=== PATIENT | female | born 1960 | race Caucasian/White ===

== ENCOUNTER 2021-03-20 07:27 | Outpatient (CLI) | payer OTHER ==
[~2021-03-20] VITALS: Ht 167.7 cm; Wt 113.6 kg
[~2021-03-20 07:27] MED LIST: AMLO-65 PO; ESTR0.62 PO; ESTR1TAB37 PO; MULT1CAP27 PO
[2021-03-20] MEDS ORDERED: ESTR1TAB24 PO (15:59)
[2021-03-20] MEDS ORDERED: SIMV40TA25 PO (15:59)
== END 2021-03-20 16:18 | disposition home or self-care (01) ==
LOC: PREOP 07:27
PROVIDERS: ATTEND Surgery
DX: Z01.818 Encounter for other preprocedural examination (principal)

== ENCOUNTER 2021-03-27 08:29 | Day surgery (SDC) | payer OTHER ==
[2021-03-27] VITALS (10 sets, daily range): BP systolic 105–127; BP diastolic 57–72
[~2021-03-27] VITALS: Ht 167.7 cm; Wt 113.6 kg
[~2021-03-27 08:29] MED LIST changes: +ESTR1TAB24 PO; +SIMV40TA25 PO
--- NOTE | 2021-03-27 08:50 | Progress Note-Pre Operative ---
Pre-Operative Progress Note H&P Reviewed The H&P was reviewed, patient examined and no changes noted. Date Seen by Provider: Mar 27, 2021 Time Seen by Provider: 08:50 Date H&P Reviewed: Mar 27, 2021 Time H&P Reviewed: 08:45 Pre-Operative Diagnosis: Chronic calculous cholecystitis SANFORD MERCHANT APRN Mar 27, 2021 08:50
[2021-03-27] MEDS ORDERED: HYDR-3817 PO (08:52)
--- NOTE | 2021-03-27 08:53 | Discharge Inst-Surgical ---
D/C Lap Instructions-KIDO Reconcile Patient Problems Problems Reviewed?: Yes New, Converted, or Re-Newed RX: RX on Chart Follow Up Appt in 2 weeks Activity as tolerated No driving for 24 hours No driving while on pain medications Incentive Spirometry use every 2 hours while awake Regular Diet Symptoms to Report: Fever over 101 degree F, Nausea/Vomiting Infection Signs and Symptoms to report: Increased redness, Foul odor of wound, Increased drainage Bathing instructions: May shower Operative Area Clean/Dry; Keep incision clean/dry If any problems/questions: Contact your physician or go to Emergency Room SANFORD MERCHANT APRN Mar 27, 2021 08:53
[2021-03-27] MEDS ORDERED: LIDOCAINE/EPI 1%-1:100,000 (XYLOCAINE) 20ML ONE (08:56)
[2021-03-27] MEDS ORDERED: ceFAZolin 2 GM IV Premixed 50 ML ONE (08:56)
[2021-03-27] MEDS ORDERED: ceFAZolin 2 GM IV Premixed 50 ML IV ONE (09:00)
[2021-03-27] MEDS ORDERED: morphine INJ 10 MG/ML 1ML (SYR OR VIAL) IVP PRN (09:00)
[2021-03-27] MEDS ORDERED: ONDANSETRON 4 MG/2 ML (SDV) Z0FRAN IVP PRN ×2 (09:00→12:15)
[2021-03-27] MEDS ORDERED: HYDROcodone/APAP 5 MG/325 MG (LORTAB) TAB PO ONE (09:00)
[2021-03-27] MEDS: LACTATED RINGERS 1,000 ML IV PRN ×2 (09:00→11:00)
[2021-03-27] MEDS ORDERED: ACETAMINOPHEN 325 MG TABLET PO PRN (09:00)
[2021-03-27] MEDS ORDERED: LIDOCAINE PF 2% 5 ML (XYLOCAINE) VIAL ONE (09:17)
[2021-03-27] MEDS ORDERED: ONDANSETRON 4 MG/2 ML (SDV) Z0FRAN ONE (09:17)
[2021-03-27] MEDS ORDERED: proPOfol 200 MG/20 ML (DIPRIVAN) VIAL IV ONE (09:17)
[2021-03-27] MEDS ORDERED: MIDAZOLAM 2 MG/2 ML (VERSED) VIAL ONE (09:17)
[2021-03-27] MEDS ORDERED: ROCURONIUM 10 MG/ML 5 ML SYRINGE IV ONE (09:17)
[2021-03-27] MEDS ORDERED: fentaNYL INJ 100 MCG/2 ML AMP ONE (09:24)
[2021-03-27] MEDS ORDERED: CLINDAMYCIN 900 MG/50 ML IVPB 50 ML IV ONE (10:30)
[2021-03-27] MEDS ORDERED: KETOROLAC 30 MG/ML VIAL ONE (11:40)
[2021-03-27] MEDS ORDERED: GLYCOPYRROLATE 0.2 MG/ML (ROBINUL) 2 ML VIAL ONE (11:44)
[2021-03-27] MEDS ORDERED: NEOSTIGMINE 3 MG/3 ML VIAL ONE (11:44)
[2021-03-27] MEDS ORDERED: SEVOFLURANE (ULTANE) 15 ML INHAL SOLN ONE (11:44)
--- NOTE | 2021-03-27 11:46 | Progress Note-Post Operative ---
Post-Operative Progess Note Surgeon (s)/Supervisor Plastics (s) Surgeon SANDER LEYVA MD Supervisor Plastics: yolanda schumacher REPAIR SERVICER Pre-Operative Diagnosis Chronic calculous cholecystitis Post-Operative Diagnosis same Procedure & Operative Findings Date of Procedure 03/27/21 Procedure Performed/Findings laparoscopic cholecystectomy Anesthesia Type get Estimated Blood Loss Estimated blood loss (mL): minimal Specimens/Packing Specimens Removed gallbladder SANDER LEYVA MD Mar 27, 2021 11:46
--- NOTE | 2021-03-27 12:11 | Anesthesia-General Post-Op ---
General Patient Condition Mental Status/LOC: Same as Preop Cardiovascular: Satisfactory Nausea/Vomiting: Absent Respiratory: Satisfactory Pain: Controlled Complications: Absent Post Op Complications Complications None Follow Up Care/Instructions Patient Instructions None needed. Anesthesia/Patient Condition Patient Condition Patient is doing well, no complaints, stable vital signs, no apparent adverse anesthesia problems. No complications reported per nursing. CANDY REYNOLDS CRNA Mar 27, 2021 12:11
[2021-03-27] MEDS ORDERED: morphine INJ 10 MG/ML 1ML (SYR OR VIAL) IVP ONE (12:15)
[2021-03-27] MEDS ORDERED: fentaNYL INJ 100 MCG/2 ML AMP IVP ONE (12:15)
--- NOTE | 2021-03-27 14:58 | OPERATIVE REPORT ---
DATE OF SERVICE: 03/27/2021 ATTENDING PRIMARY CARE PHYSICIAN: Ori Eric DO. PREOPERATIVE DIAGNOSIS: Symptomatic chronic calculous cholecystitis. POSTOPERATIVE DIAGNOSIS: Symptomatic chronic calculous cholecystitis. PROCEDURE PERFORMED: Laparoscopic cholecystectomy. SURGEON: Sander Leyva MD. MUSHROOM LABORER: Michael Linares APRN. ANESTHESIA: General endotracheal. ESTIMATED BLOOD LOSS: Minimal. FINDINGS: Distended gallbladder, gallstones. DISPOSITION: The patient tolerated the procedure well. INDICATIONS FOR PROCEDURE: The patient is a 60-year-old female, who has had pain in the right upper abdominal quadrant for the past several months. This is usually following a meal. She would also have associated nausea; however, no vomiting. She has had more frequent episodes as well as more severe in nature and an ultrasound was performed, which did show gallstones. DESCRIPTION OF PROCEDURE: The patient was brought to the operating room and laid supine on the table. After adequate IV pain and sedative medications and general endotracheal intubation, the abdomen was prepped and draped in a standard surgical fashion. A 0.5% Marcaine with epinephrine was used to anesthetize the overlying skin in the left upper abdominal quadrant and a transverse skin incision made using a 15 blade. A 0 silk suture was applied to the medial aspect of the incision for retraction and a Veress needle inserted with a low opening pressure of 0 mmHg and the abdomen was then insufflated to 15 mmHg pressure. The Veress needle was removed and a 5 mm XL trocar was placed followed by a 5 mm 45-degree angle laparoscope visualizing the peritoneal cavity. A four-quadrant abdominal exploration was performed. There was hepatomegaly with a distended gallbladder and no gallbladder wall thickening. Under direct visualization, we then proceeded to place a supraumbilical 10 mm port after the skin and peritoneal lining were anesthetized using 0.5% Marcaine with epinephrine and a transverse skin incision made using a 15 blade. In a similar manner, a right upper abdominal quadrant 5 mm port was placed. The patient was then placed in a reverse Trendelenburg position as well as plane right side up, left side down. The fundus of the gallbladder was then retracted anteriorly and superiorly. The hepatoduodenal ligament was then dissected using blunt dissection as well as electrocautery on the hook instrument as well as a [place] dissector. The entire critical view of safety was identified including the triangle of Calot as well as the cystic duct and artery as the only two structures going into the gallbladder as well as the cystic plate behind the proximal gallbladder. A timeout was then taken and the cystic duct and artery were then clipped proximally, distally and cut with EndoShears. The gallbladder was dissected off the liver bed using cautery using a hook as well as the spatula with visualization of good hemostasis. The gallbladder was removed through the 10 mm port site using an EndoCatch bag. The 10 mm port site fascia and peritoneum were then closed under direct visualization using a Francis-Steffen device and 0 Vicryl suture. The abdomen was desufflated and remaining ports removed. All skin incisions were closed using a 4-0 Monocryl running subcuticular sutures. Wounds were then cleaned and covered with Dermabond. The patient tolerated the procedure well. We will start IV normal pain medication as well as a clear liquid diet. Once she is tolerating clears, has a good pain control with oral pain medications, and ambulating well, we will discharge her home. She will be instructed to do no heavy lifting or exertion for the next two weeks. Job ID: [id number] DocumentID: [id number] Dictated Date: 03/27/2021 11:58:34 Apron Operator Date: 03/27/2021 14:57:19 Dictated By: SANDER LEYVA MD
== END 2021-03-27 14:00 | disposition home or self-care (01) ==
LOC: SDC 08:29
PROVIDERS: ATTEND Surgery
DX: K80.12 Calculus of gallbladder with acute and chronic cholecystitis without obstruction (principal); I10 Essential (primary) hypertension; E78.00 Pure hypercholesterolemia, unspecified; K21.00 Gastro-esophageal reflux disease with esophagitis, without bleeding; E66.01 Morbid (severe) obesity due to excess calories; Z68.41 Body mass index [BMI] 40.0-44.9, adult; Z79.899 Other long term (current) drug therapy
CPT/HCPCS: 87081; 88304

== ENCOUNTER → 2021-06-04 | Outpatient (CLI) | payer OTHER ==
[~2021-06-04] MED LIST changes: +HYDR-3817 PO
--- NOTE | 2021-06-04 18:18 | Diagnostic Imaging Report ---
PROCEDURE: CT right lower extremity without contrast. TECHNIQUE: Axially acquired CT was obtained through the right lower extremity without intravenous contrast. Coronal and sagittal reformations were also performed. Auto Exposure Controls were utilized during the CT exam to meet ALARA standards for radiation dose reduction. INDICATION: Right knee replacement. Right knee pain COMPARISON: None FINDINGS: No acute fracture is seen in the right knee. Alignment appears normal. There are severe degenerative changes in all 3 compartments of the right knee. No significant joint effusion is seen. There is a small right knee joint effusion. There is a cyst posterior to the distal femur measuring about 2.9 cm in diameter, likely a ganglion cyst. No focal muscular atrophy is seen. No acute osseous abnormalities seen in the right hip or right ankle. There are degenerative changes present. IMPRESSION:. Advanced tricompartmental degenerative changes in the right knee with no acute fracture seen. Dictated by: Dictated on workstation # [id number]
== END ==
LOC: RAD 16:45
PROVIDERS: ATTEND Orthopaedic Surgery
DX: M17.11 Unilateral primary osteoarthritis, right knee (principal); Z96.651 Presence of right artificial knee joint
CPT/HCPCS: 73700

== ENCOUNTER 2021-06-23 05:31 | Outpatient (RCR) | payer OTHER ==
[2021-06-17 13:12] VITALS: BP 136/85
[2021-06-17 13:48] LABS: BASOPHILS % (AUTO) 1 % (0-10); EOSINOPHILS # (AUTO) 0.1 10^3/uL (0.0-0.3); EOSINOPHILS % (AUTO) 2 % (0-10); HEMATOCRIT 39 % (35-52); HEMOGLOBIN 12.9 g/dL (11.5-16.0); LYMPHOCYTES # (AUTO) 1.6 10^3/uL (1.0-4.0); LYMPHOCYTES % (AUTO) 24 % (12-44); MEAN CORPUSCULAR HEMOGLOBIN 29 pg (25-34); MEAN CORPUSCULAR HGB CONC 33 g/dL (32-36); MEAN CORPUSCULAR VOLUME 89 fL (80-99); MEAN PLATELET VOLUME 11.8 fL (9.0-12.2); MONOCYTES # (AUTO) 0.6 10^3/uL (0.0-1.0); MONOCYTES % (AUTO) 9 % (0-12); NEUTROPHILS # (AUTO) 4.3 10^3/uL (1.8-7.8); NEUTROPHILS % (AUTO) 65 % (42-75); PLATELET COUNT 196 10^3/uL (130-400); WHITE BLOOD COUNT 6.6 10^3/uL (4.3-11.0)
[2021-06-17 13:50] LABS: BILIRUBIN,URINE NEGATIVE (NEGATIVE); CLARITY,URINE CLEAR; COLOR,URINE YELLOW; GLUCOSE, URINE (UA) NEGATIVE (NEGATIVE); KETONES,URINE NEGATIVE (NEGATIVE); LEUKOCYTE ESTERASE ,URINE NEGATIVE (NEGATIVE); NITRITE,URINE NEGATIVE (NEGATIVE); PROTEIN,URINE NEGATIVE (NEGATIVE)
[2021-06-17 14:00] LABS: WBC,URINE 0-2 /HPF
[2021-06-17 14:01] LABS: BACTERIA,URINE NEGATIVE /HPF
[2021-06-17 14:10] LABS: ALBUMIN 3.4 GM/DL (3.2-4.5); BILIRUBIN,TOTAL 0.3 MG/DL (0.1-1.0); CALCIUM 8.4 MG/DL (8.5-10.1); CREATININE SERUM 0.57 MG/DL (0.60-1.30); POTASSIUM 3.9 MMOL/L (3.6-5.0); TOTAL PROTEIN 6.3 GM/DL (6.4-8.2)
--- NOTE | 2021-06-17 16:54 | Diagnostic Imaging Report ---
INDICATION: Preoperative evaluation prior to knee replacement COMPARISON: None. FINDINGS: Frontal and lateral views of the chest demonstrate normal heart size and pulmonary vascularity. The lungs are clear. There are no signs of infiltrate, pleural effusions or pneumothoraces. The visualized osseous structures show no acute abnormalities. IMPRESSION: 1. No acute process. No signs of infiltrates, effusions or pneumothoraces. Dictated by: Dictated on workstation # [id number]
[~2021-06-23] VITALS: Ht 167.7 cm; Wt 118.8 kg
[~2021-06-23 05:31] MED LIST changes: +MULT-1136 PO
[2021-06-25] MEDS ORDERED: NS IV 1000 ML 1,000 ML IV SCH (07:30)
[2021-06-25] MEDS ORDERED: NALOXONE 0.4 MG/ML 1 ML (NARCAN) VIAL IV PRN (07:30)
[2021-06-25] MEDS ORDERED: morphine PCA 100 MG/100 ML BAG IV PRN (07:30)
[2021-06-25] MEDS ORDERED: ONDANSETRON 4 MG/2 ML (SDV) Z0FRAN IVP PRN (07:30)
[2021-06-25] MEDS ORDERED: oxyCODONE/APAP 5/325MG (PERCOCET 5) TABLET PO PRN (07:30)
[2021-06-25] MEDS ORDERED: diphenhydrAMINE 50 MG/ML INJ (BENADRYL) IVP PRN (07:30)
[2021-06-25] MEDS ORDERED: SENNA W/DOCUSATE (SENOKOT S) TABLET PO SCH (09:00)
--- NOTE | 2021-06-25 11:13 | Diagnostic Imaging Report ---
INDICATION: Right knee surgery. TIME OF EXAM: 10:49 AM. FINDINGS: Two views of the right knee demonstrate post operative changes of total knee arthroplasty. The prosthetic elements are in good position. No fracture or loosening is seen. Overlying skin oleg are noted. IMPRESSION: Satisfactory postop appearance to the right knee. Dictated by: Dictated on workstation # [id number]
[2021-06-25] MEDS ORDERED: CEFUROXIME INJECTION 750 MG in WATER (STERILE) FOR INJECTION 10 ML IV SCH (15:30)
[2021-06-26] MEDS ORDERED: MULTIVIT W/MINERALS TAB (THERAGRAN M) PO SCH (07:00)
[2021-06-26] MEDS ORDERED: ENOXAPARIN 30 MG/0.3 ML (LOVENOX) SYR SC SCH (07:30)
[2021-06-26] MEDS ORDERED: ASPIRIN E.C. 81 MG (ECOTRIN) TAB PO SCH (09:00)
== END 2021-06-25 11:40 | disposition home or self-care (01) ==
LOC: PREOP 05:31
PROVIDERS: ATTEND Orthopaedic Surgery
DX: Z01.818 Encounter for other preprocedural examination (principal); M17.11 Unilateral primary osteoarthritis, right knee; Z11.2 Encounter for screening for other bacterial diseases; Z20.822 Contact with and (suspected) exposure to COVID-19
CPT/HCPCS: 36415; 71046; 73560; 80053; 81000; 85025; 85610; 86850; 86900; 86901; 87081; 87635; 93005

== ENCOUNTER 2021-06-25 07:26 | Inpatient (IN) | payer OTHER ==
--- NOTE | 2021-06-18 06:06 | HISTORY AND PHYSICAL ---
DATE OF SERVICE: ADMISSION HISTORY AND PHYSICAL This will be for inpatient admission on 06/25/2021 for right total knee arthroplasty. The patient will require regular inpatient admission for pain management, need for physical therapy and IV pain medication. HISTORY: The patient is a 60-year-old female with complaints of progressively worsening right knee pain. She has undergone treatment with arthroscopy in the past. She reports the arthroscopy helped for about a year. She reports activity limitations because of the knee. She reports pain primarily medially. She denies giving way. She reports an aching pain, worse with prolonged immobilization. She has tried antiinflammatories and activity modifications without relief. Due to functional impairment and failure to improve with conservative measures, the patient elected to proceed with surgical intervention. REVIEW OF SYSTEMS: No chest pain, no shortness of breath, no dysuria. PAST MEDICAL HISTORY: Hypertension, hypercholesterolemia. PAST SURGICAL HISTORY: Cholecystectomy, , right eye, right carpal tunnel, right knee scope, tonsillectomy. FAMILY HISTORY: Noncontributory. PRIMARY CARE PROVIDER: Dr. Eric. MEDICATIONS: Multivitamin, estradiol, simvastatin. ALLERGIES: SULFA, CODEINE, KEFLEX, PENICILLIN. SOCIAL HISTORY: The patient denies alcohol and tobacco use. RADIOGRAPHS: Reveal significant lateral joint space narrowing with osteophyte formation in the medial joint space and moderate patellofemoral joint space narrowing. PHYSICAL EXAMINATION: GENERAL: The patient is well developed, well nourished, in no acute distress. HEENT: Normocephalic, atraumatic. Pupils are equal, round and reactive to light. Oropharynx is clear. NECK: Supple, no lymphadenopathy. LUNGS: Clear to auscultation bilaterally. HEART: Regular rate and rhythm. ABDOMEN: Soft, nontender, nondistended. EXTREMITIES: The right lower extremity demonstrates a valgus alignment. She is tender along her lateral and medial joint lines. She ambulates with an antalgic gait on the right. She has 1+ varus laxity, no valgus laxity. Negative anterior and posterior drawer. Range of motion 0/4/120. She has moderate effusion. Negative straight leg raise and no pain with hip range of motion. IMPRESSION: Right knee osteoarthritis. PLAN: Right total knee arthroplasty. The risks, benefits, options, ramifications and recovery have been discussed at length with the patient. She understands and wishes to proceed. Job ID: [id number] DocumentID: [id number] Dictated Date: 06/10/2021 10:59:37 Special Needs Child Caregiver Date: 06/10/2021 12:07:23 Dictated By: GERRY LAURENT MD
[~2021-06-25] VITALS: Ht 167.7 cm; Wt 123.1 kg
[2021-06-25] VITALS (13 sets, daily range): BP systolic 106–150; BP diastolic 58–87
--- NOTE | 2021-06-25 07:35 | Progress Note-Pre Operative ---
Pre-Operative Progress Note H&P Reviewed The H&P was reviewed, patient examined and no changes noted. Date Seen by Provider: Jun 25, 2021 Time Seen by Provider: 07:35 Date H&P Reviewed: Jun 25, 2021 Time H&P Reviewed: 07:35 Pre-Operative Diagnosis: right knee primary osteoarthritis GERRY LAURENT MD Jun 25, 2021 07:35
--- NOTE | 2021-06-25 07:36 | Progress Note-Post Operative ---
Post-Operative Progess Note Surgeon (s)/Wet Cleaner Machine (s) Surgeon GERRY LAURENT MD Wet Cleaner Machine: Tay Portillo Pre-Operative Diagnosis right knee primary osteoarthritis Post-Operative Diagnosis right knee primary osteoarthritis Procedure & Operative Findings Date of Procedure 06/25/21 Procedure Performed/Findings right total knee arthroplasty Anesthesia Type GETA Estimated Blood Loss Estimated blood loss (mL): minimal Specimens/Packing Specimens Removed none Packing: none GERRY LAURENT MD Jun 25, 2021 07:36
--- NOTE | 2021-06-25 07:38 | D/C HH Face to Face Order ---
D/C Face to Face Orders Reconcile Patient Problems Problems Reviewed?: Yes Instructions for Patient [facility], Patient Instructions/FollowUp: three weeks Physician to follow Patient: three weeks Discharge Diet for Home: Regular Diet Patient Data-Allergies,Ht & Wt Patient Allergies: Coded Allergies: Penicillins (Verified Allergy, Unknown, Rash, 06/17/21) Sulfa (Sulfonamide Antibiotics) (Verified Allergy, Unknown, Rash, 06/17/21) cephalexin (Verified Allergy, Unknown, Rash, 06/17/21) codeine (Verified Allergy, Unknown, 04/18/07) Height (Feet): 5 Height (Inches): 7.00 Weight (Pounds): 300 Home Health Need/Face to Face Date of Face to Face: Jun 25, 2021 Clinical Findings: Muscle weakness, Pain with ambulation, Unsteady gait I have seen Pt [id number]: Yes Discharged To: Home Diagnosis/Conditions: right total knee arthroplasty Patient is Homebound due to: Muscle weakness, Pain w/ambulation Homebound Status Due to the above stated illness, injury or surgical procedure (medical condition or diagnosis) and associated clinical findings, the patient is homebound because of his/her inability to leave home except with aid of a supportive device and/or person AND leaving the home requires a considerable and taxing effort or is medically contraindicated. Pt req the following assistanc: [facility] Nursing Orders Home Health Services Order: Physical Therapy-Evaluate & Treat DC right knee oleg and apply steri strips 07/09/21 Therapy Orders Therapy Orders: Physical Therapy, PT to assess for OT Therapy Specific Orders: Eval assistive deivces, Teach enviro modifica tions/safety, Gait training, Increase strength/endurance, Provider maintenance therapy, Restore ROM Certify Stmt I certify that this patient is under my care and that I, a nurse practitioner or a physician; a grooming assistant working with me, had a face to face encounter that - meets the physician face to face encounter requirements with this patient as dated. GERRY LAURENT MD Jun 25, 2021 07:38
[2021-06-25] MEDS ORDERED: CEFUROXIME INJECTION 1,500 MG in WATER (STERILE) FOR INJECTION 15 ML IV ONE (07:45)
[2021-06-25] MEDS ORDERED: INTRA-ARTICULAR IU ONE ×5 (07:45)
[2021-06-25] MEDS ORDERED: ROPIVACAINE 5MG/ML 30ML VIAL ONE (08:06)
[2021-06-25] MEDS ORDERED: LIDOCAINE PF 2% 5 ML (XYLOCAINE) VIAL ONE ×2 (08:06→08:51)
[2021-06-25] MEDS ORDERED: MIDAZOLAM 2 MG/2 ML (VERSED) VIAL ONE (08:06)
[2021-06-25] MEDS: LACTATED RINGERS 1,000 ML IV PRN ×2 (08:35→09:20)
[2021-06-25] MEDS ORDERED: ONDANSETRON 4 MG/2 ML (SDV) Z0FRAN ONE (08:51)
[2021-06-25] MEDS ORDERED: proPOfol 200 MG/20 ML (DIPRIVAN) VIAL IV ONE (08:51)
[2021-06-25] MEDS ORDERED: fentaNYL INJ 100 MCG/2 ML AMP ONE (08:51)
[2021-06-25] MEDS ORDERED: SEVOFLURANE (ULTANE) 15 ML INHAL SOLN ONE (08:51)
[2021-06-25] MEDS ORDERED: DESFLURANE (SUPRANE) 15 ML INHAL SOLN ONE (10:37)
[2021-06-25] MEDS ORDERED: HYDROmorphone 2 MG/ML VIAL (DILAUDID) IV ONE (11:15)
[2021-06-25] MEDS ORDERED: diphenhydrAMINE 50 MG/ML INJ (BENADRYL) IVP PRN (13:30)
[2021-06-25] MEDS ORDERED: morphine PCA 100 MG/100 ML BAG IV PRN (13:30)
[2021-06-25] MEDS ORDERED: ONDANSETRON 4 MG/2 ML (SDV) Z0FRAN IVP PRN (13:30)
[2021-06-25] MEDS ORDERED: NALOXONE 0.4 MG/ML 1 ML (NARCAN) VIAL IV PRN (13:30)
--- NOTE | 2021-06-25 13:37 | Consultation - Hospitalist ---
HPI History of Present Illness: HPI/Chief Complaint Pt is a 60yoCF who was admitted following right TKA due to osteoarthritis. She reports pain in present but well controlled. She has already worked with PT and is up to chair. Her only complaint is that she's hungry. I am consulted for medical management. She has a history of hypertension but has not needed any medications since this summer when she had her gallbladder taken out and became septic afterwards. Source: patient Exam Limitations: no limitations Date Seen 06/25/21 Attending Physician Tree Mei MD PCP Ori Eric DO Referring Physician Date of Admission Jun 25, 2021 at 07:26 Home Medications & Allergies Home Medications Reviewed patient Home Medication Reconciliation performed by pharmacy medication reconciliations electronic warfare technician and/or nursing. Patients Allergies have been reviewed. Allergies Allergies Coded Allergies Penicillins (Verified Allergy, Mild, Rash, 06/25/21) Sulfa (Sulfonamide Antibiotics) (Verified Allergy, Mild, Rash, 06/25/21) cephalexin (Verified Allergy, Mild, Rash, 06/25/21) codeine (Verified Allergy, Mild, 06/25/21) DELIRIUM Past Ztljgni-Rndeyi-Ecdiei Hx Patient Social History Tobacco Use?: No Smoking Status: Never a Smoker Substance use?: No Alcohol Use?: No Pt feels they are or have been: No Immunizations Up To Date First/Initial COVID19 Vaccinat: december 2020 Second COVID19 Vaccination Herve: january 2021 Seasonal Allergies Seasonal Allergies: Yes Current Status Advance Directives: Yes Advance Directive Location: Home Communicates: Verbally Primary Language: Hebrew Sensory deficits: Vision impairment Implanted or Applied Medical D: None Past Medical History Surgeries: Section, Eye Surgery, Gallbladder, Hysterectomy, O rthopedic, Tonsillectomy Currently Using CPAP: No Currently Using BIPAP: No 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 oz. 136.031149sz; 42.24 BMI Method: General Appearance: No Apparent Distress, WD/WN, Obese HEENT: PERRL/EOMI, Moist Mucous Membranes; No Scleral Icterus (L), No Scleral Icterus (R) Neck: Normal Inspection, Supple Respiratory: Lungs Clear, No Accessory Muscle Use, No Respiratory Distress Cardiovascular: Regular Rate, Rhythm, No Murmur Gastrointestinal: Normal Bowel Sounds, Non Tender, Soft Extremity: Normal Capillary Refill, No Pedal Edema, Other (compression stockings in place) Neurologic/Psychiatric: Alert, Oriented x3, Normal Mood/Affect Skin: Normal Color, Warm/Dry Results Results/Procedures Labs Patient resulted labs reviewed. Imaging: Reviewed Imaging Report Imaging [facility] [place] NAME: IGNACIO ESPINOSA [facility] REC#: [id number] PT STATUS: REG RCR : 1960 PHYSICIAN: MELINDA FREEMAN ADMIT DATE: 06/23/21/PREOP Draft Date of Exam:06/25/21 KNEE, RIGHT, 2 VIEWS INDICATION: Right knee surgery. TIME OF EXAM: 10:49 AM. FINDINGS: Two views of the right knee demonstrate post operative changes of total knee arthroplasty. The prosthetic elements are in good position. No fracture or loosening is seen. Overlying skin oleg are noted. IMPRESSION: Satisfactory postop appearance to the right knee. Dictated on workstation # [id number] Dict: 06/25/21 1105 Trans: 06/25/21 1112 [id number] Interpreted by: TERRIE LAKE MD Electronically signed by: Assessment/Plan Assessment and Plan Assess & Plan/Chief Complaint Osteoarthritis s/p right TKA management per primary pain control via BOILER PLANT WORKER PT/OT IRF bowel regimen Lovenox HTN Has been off BP since March after admission for sepsis Trend HLD Continue home simvastatin Will round prn Diagnosis/Problems Diagnosis/Problems (1) Elevated blood pressure reading (2) Hyperlipidemia (3) Osteoarthritis of right knee Copy Copies To 1: ORI ERIC KATELYN M MD Jun 25, 2021 13:37
[2021-06-25] MEDS: NS IV 1000 ML 1,000 ML IV SCH (14:46)
--- NOTE | 2021-06-25 15:22 | OPERATIVE REPORT ---
DATE OF SERVICE: 06/25/2021 PREOPERATIVE DIAGNOSIS: Right knee primary osteoarthritis. POSTOPERATIVE DIAGNOSIS: Right knee primary osteoarthritis. PROCEDURE: Right total knee arthroplasty. SURGEON: Tree Laurent MD SEPTIC CLEANER: Tay Portillo, who assisted throughout the procedure and closed the incision. ANESTHESIA: General endotracheal by Chikis Astudillo CRNA. TOURNIQUET TIME: 60 minutes at 300 mmHg. ESTIMATED BLOOD LOSS: Minimal. DRAINS: None. COMPLICATIONS: None. POSTOPERATIVE PLAN: Routine total knee protocol. The patient was transferred to the recovery room awake and in stable condition. MATERIALS: Microport cemented size 4 femur, cemented size 4 tibia with 10 mm insert and cemented size 29 patellar button. STATEMENT OF MEDICAL NECESSITY: The patient is a 60-year-old female with progressively worsening right knee pain. She has undergone treatment with injections, anti-inflammatories and rest without relief. Radiographs revealed severe lateral and patellofemoral arthrosis. Due to functional impairment and failure to improve with conservative measures, the patient elected to proceed with surgical intervention. DESCRIPTION OF PROCEDURE: After risks and benefits of procedure were discussed and questions were answered, an informed consent was signed and placed on chart, the operative site was confirmed in the preoperative holding area initialed by the surgeon. The patient was then transferred to the operating room and after adequate levels of general endotracheal anesthetic were obtained, a timeout was called, confirming the operative site. The right lower extremity was prepped and draped in the usual sterile fashion with the leg elevated and the knee flexed. Tourniquet was inflated to 300 mmHg. A standard anterior approach was utilized. Hemostasis was obtained with cautery. A medial parapatellar arthrotomy was performed leaving 1 cm cuff on the patella for later reattachment. A portion of the fat pad was resected. Subperiosteal release was performed in the proximal medial tibia being careful to stay on the bony surface. The distal block was placed and pinned into position. The cutting block was then placed and the cut was made. The femur had been sized to a size 4 with preoperative computer generated planning: The 4 cutting block was placed parallel to the epicondylar axis and cuts were made from posterior to anterior. Subperiosteal release was carefully performed on the posterior distal femur, being careful to stay on the bony surface. The tibial custom block was then placed and pinned into position. The drop maya transected the intermalleolar axis and was felt to be in excellent position. This was then pinned and the cut was made. The 4 cutting block was placed and the drop maya again transected the intermalleolar axis. The baseplate was placed in this transected intermalleolar axis as well. This was prepared with the drill and keel punch. The femoral trial was made and the trochlear cut was made. The patella was then prepared by resecting 10 mm off the undersurface. The peg guide was placed and the peg holes were drilled. The 29 trial was placed. The knee was then taken through range of motion. Full extension was easily obtained, 120 degrees of flexion with gravity was easily obtained. There was no anterior/posterior or medial/lateral laxity in flexion or extension and the patella tracked well. The trials were removed. The joint was irrigated with pulse lavage. The periarticular block was placed in the posterior capsule, medial and lateral retinaculum extensor mechanism, subcutaneous tissues. The bone ends were irrigated and dried and the tibial baseplate was cemented into position. The superior surface was irrigated and dried and the polyethylene insert was placed. Excessive cement was removed. The distal femur was irrigated and dried and the femoral prosthesis was cemented into position. Excessive cement was removed. The knee was brought out into full extension until cement had cured. The undersurface of the patella was irrigated and dried and the patellar button was cemented into position. Excessive cement was removed. Once the cement had cured, the knee was taken through range of motion. Full extension was easily obtained, 120 degrees of flexion with gravity was easily obtained. There was no anterior/posterior or medial/lateral laxity in flexion or extension and the patella tracked well. The joint was further irrigated with pulse lavage. Arthrotomy was closed with #2 Tevdek in tagxls-dz-vaosh interrupted fashion. Knee was flexed. The repair was stable. The subcutaneous tissues were irrigated using a total of 6 liters throughout the procedure. A 0 Vicryl was used for deep subcutaneous tissue, 2-0 Vicryl for the superficial subcutaneous tissue, oleg used on the skin. A soft dressing was applied. The tourniquet was deflated. The patient was transferred to recovery room awake and in stable condition. Job ID: [id number] DocumentID: [id number] Dictated Date: 06/25/2021 10:46:29 Mainframe Programmer Date: 06/25/2021 15:22:00 Dictated By: TREE LAURENT MD
--- NOTE | 2021-06-25 16:20 | Physical Therapy Evaluation ---
PT Evaluation-General Medical Diagnosis Admission Date Jun 25, 2021 at 07:26 Medical Diagnosis: Right TKA Onset Date: Jul 09, 2021 Therapy Diagnosis Therapy Diagnosis: Gait deficit, Strength deficit Height/Weight Height (Feet): 5 Height (Inches): 7.00 Weight (Pounds): 300 Precautions Precautions/Isolations: Fall Prevention Weight Bear Status Right Lower Extremity: Right Weight Bearing/Tolerated Left Lower Extremity: Left Weight Bearing/Tolerated Referral Physician: Dr. Mei Reason for Referral: Evaluation/Treatment Social History Home: Single Level PT Steps Into Home: 3 Prior Prior Level of Function SCALE: Activities may be completed with or without assistive devices. 7-Ulaejhlhsa-hprrdsi completes the activity by him/herself with no assistance from a helper. 5-Set-up or Clean-up Assistance-helper sets up or cleans up; patient completes activity. [place] assists only prior to or following the activity. 4-Supervision or Touching Assistance-helper provides verbal cues and/or touching/steadying and/or contact guard assistance as patient completes activity. Assistance may be provided throughout the activity or intermittently. 3-Partial/Moderate Assistance-helper does LESS THAN HALF the effort. [place] lifts, holds or supports trunk or limbs, but provides less than half the effort. 2-Substantial/Maximal Assistance-helper does MORE THAN HALF the effort. [place] lifts or holds trunk or limbs and provides more than half the effort. 0-Wvvzwfuzo-rwgqhg does ALL the effort. Patient does none of the effort to complete the activity. Or, the assistance of 2 or more helpers is required for the patient to complete the activity. If activity was not attempted, code reason: 7-Patient Refused. 9-Not Applicable-not attempted and the patient did not perform the activity before the current illness, exacerbation or injury. 10-Not Attempted due to Environmental Limitations-(lack of equipment, weather restraints, etc.). 88-Not Attempted due to Medical Conditions or Safety Concerns. Bed Mobility: 6 Transfers (B,C,W/C): 6 Gait: 6 Stairs: 6 Indoor Mobility (Ambulation): Independent Stairs: Independent Prior Devices Use: None Patient has no AD at home. Will need FWW at the least PT Evaluation-Current Subjective Patient lying supine in bed upon PT arrival, agreeable to treatment. Patient rates pain at 6/10 in right knee Objective Patient Orientation: Person, Place, Time, Situation Attachments: Polar Pack, IV ROM/Strength ROM Lower Extremities Right knee AROM 10 degrees from neutral, flexion 80 degrees AROM; all other ROMs WFL bilaterally Strength Lower Extremities Right knee N/A due to recent surgery. All other motions 4/5 Bilaterally Sensory Vision: Wears Glasses Hearing: Functional Sensation Right Lower Extremit: Intact Sensation Left Lower Extremity: Intact Transfers Roll Left to Right (QC): 4 Sit to Lying (QC): 4 Lying to Sitting/Side of Bed(Q: 4 Sit to Stand (QC): 4 Chair/Tii-up-Hnnqz Xfer(QC): 3 (Min) Toilet Transfer (QC): 3 (Min) Gait Does the Patient Walk?: Yes Mode of Locomotion: Walk Anticipated Mode of Locomotion: Walk Walk 10 feet (QC): 4 Distance: 15 feet Gait Assistive Device: FWW Balance Sitting Static: Good Sitting Dynamic: Good Standing Static: Fair Standing Dynamic: Fair Assessment/Needs Patient lying supine in bed upon PT arrival, agreeable to PT treatment. Patient performs all observed bed mobility and transfers with Min A /CGA. She demonstrates 10-80 degrees in AROM in the right knee extension/flexion. Patient ambulates 15 feet with FWW, with CGA and verbal cues for progression, safety, posture and balance. Patient in chair post treatment with sister in the room, all needs met, nursing notified, call light in reach. CPM set at 0-80 and patient was advised to use the CPM for two hours twice more this evening. Rehab Potential: Good Equipment Needs FWW, Toilet riser, Shower chair/bench PT [place] Traffic Checker Goals [facility] Goals PT [place] Traffic Checker Goals Time Frame: Jul 16, 2021 Roll Left & Right (QC): 6 Sit to Lying (QC): 6 Lying-Sitting on Side/Bed(QC): 6 Sit to Stand (QC): 6 Chair/Ehw-je-Pdnhx Xfer(QC): 5 Toilet Transfer (QC): 5 Car Transfer (QC): 5 Does the Patient Walk: Yes Walk 10 feet (QC): 6 Walk 50ft with 2 Turns (QC): 6 Walk 150 ft (QC): 6 1 Step (curb) (QC): 5 4 Steps (QC): 5 PT Plan Problem List Problem List: Activity Tolerance, Functional Strength, Safety, Balance, Gait, Transfer, Bed Mobility, ROM Treatment/Plan Treatment Plan: Continue Plan of Care Treatment Plan: Bed Mobility, Education, Functional Activity Lc, Functional Strength, Group Therapy, Gait, Safety, Therapeutic Exercise, Transfers Treatment Duration: Sep 03, 2021 Frequency: 11 times per week Estimated Hrs Per Day: .25 hour per day Patient and/or Family Agrees t: Yes Safety Risks/Education Patient Education: Gait Training, Transfer Techniques, Reviewed Precautions Teaching Recipient: Patient, Family Teaching Methods: Demonstration, Discussion Response to Teaching: Verbalize Understanding, Return Demonstration Discharge Recommendations Equpiment Recommendations-D/C: Front Wheeled Walker Target Placement Home with Assistance as needed. Time/GCodes Time In: 1230 Time Out: 1300 Total Billed Treatment Time: 30 Total Billed Treatment Visit, adrian Arrington, CPM, CPM pads SHARON REILLY PT Jun 25, 2021 16:20
[2021-06-25] MEDS: ENOXAPARIN 30 MG/0.3 ML (LOVENOX) SYR SC SCH (18:26)
[2021-06-25] MEDS: CEFUROXIME INJECTION 750 MG in WATER (STERILE) FOR INJECTION 10 ML IV SCH (18:26)
--- NOTE | 2021-06-25 19:03 | Progress Note ---
Standard Progress Note Progress Notes/Assess & Plan Date Seen by a Provider: Jun 25, 2021 Time Seen by a Provider: 11:22 Final Diagnosis post op check no complaints radiographs--HW well positioned without fracture RLE--2 plus DP pulse with brisk cap refill. sensation intact throughout. inact DF and PF ofvtoes and ankle s/p R TKA mobilize as able GERRY LAURENT MD Jun 25, 2021 19:03
[2021-06-25] MEDS: SENNA W/DOCUSATE (SENOKOT S) TABLET PO SCH (20:27)
[2021-06-26] MEDS: CEFUROXIME INJECTION 750 MG in WATER (STERILE) FOR INJECTION 10 ML IV SCH (02:14)
[2021-06-26] MEDS: NS IV 1000 ML 1,000 ML IV SCH ×2 (02:32→14:30)
[2021-06-26 03:50] VITALS: BP 123/71
[2021-06-26] MEDS: MULTIVIT W/MINERALS TAB (THERAGRAN M) PO SCH (05:31)
[2021-06-26] MEDS: ENOXAPARIN 30 MG/0.3 ML (LOVENOX) SYR SC SCH ×2 (05:31→16:31)
[2021-06-26 07:34] VITALS: BP 141/62
--- NOTE | 2021-06-26 08:04 | Progress Note ---
Standard Progress Note Progress Notes/Assess & Plan Date Seen by a Provider: Jun 26, 2021 Time Seen by a Provider: 08:03 Progress/Assessment & Plan no complaints Vital Signs Date Time Temp Pulse Resp B/P (MAP) Pulse Ox O2 Delivery O2 Flow Rate FiO2 06/26/21 07:34 36.2 70 20 141/62 (88) 97 Room Air 06/26/21 03:50 36.0 66 18 123/71 (88) 98 Room Air 06/25/21 23:44 36.4 77 18 133/60 (84) 95 Room Air 06/25/21 20:25 Room Air 06/25/21 20:00 36.8 87 16 132/60 (84) 94 Room Air 06/25/21 15:33 36.5 78 14 138/64 (88) 93 Room Air 06/25/21 15:15 Room Air 06/25/21 14:58 36.2 14 06/25/21 12:00 36.2 84 14 137/63 (87) 98 Room Air 06/25/21 11:57 Room Air 06/25/21 11:50 36.1 14 132/72 (92) 100 Room Air 06/25/21 11:45 Room Air 06/25/21 11:40 14 129/71 (90) 100 Room Air 06/25/21 11:30 OxyMask 2 06/25/21 11:30 14 131/62 (85) 100 OxyMask 2 06/25/21 11:20 16 130/68 (88) 100 OxyMask 4 06/25/21 11:15 OxyMask 6 06/25/21 11:10 18 132/58 (82) 100 OxyMask 6 06/25/21 11:00 OxyMask 6 06/25/21 11:00 20 135/76 (95) 100 OxyMask 6 06/25/21 10:50 20 106/87 (93) 100 OxyMask 8 06/25/21 10:45 OxyMask 10 06/25/21 10:45 36.2 20 150/78 (102) 100 OxyMask 10 I & O 06/26/21 07:00 Intake Total 2755 ml Balance 2755 ml RLE--dressing intact NVI distally no calf tenderness. neg Janel's s/p RTKA PT/OT GERRY LAURENT MD Jun 26, 2021 08:04
[2021-06-26] MEDS: SENNA W/DOCUSATE (SENOKOT S) TABLET PO SCH ×2 (08:58→22:25)
[2021-06-26] MEDS: ASPIRIN E.C. 81 MG (ECOTRIN) TAB PO SCH (08:58)
--- NOTE | 2021-06-26 10:15 | Anesthesia-General Post-Op ---
General Patient Condition Mental Status/LOC: Same as Preop Cardiovascular: Satisfactory Nausea/Vomiting: Absent Respiratory: Satisfactory Pain: Controlled Complications: Absent Post Op Complications Complications None Follow Up Care/Instructions Patient Instructions None needed. Anesthesia/Patient Condition Patient Condition Patient is doing well, no complaints, stable vital signs, no apparent adverse anesthesia problems. No complications reported per nursing. VICTORIANO MUNOZ CRNA Jun 26, 2021 10:15
[2021-06-26 11:40] VITALS: BP 137/62
--- NOTE | 2021-06-26 12:03 | Occupational Therapy Eval ---
OT Evaluation-General/PLF Medical Diagnosis Admission Date Jun 25, 2021 at 07:26 Medical Diagnosis: Right TKA Onset Date: Jul 09, 2021 Therapy Diagnosis Therapy Diagnosis: Right TKA Height/Weight Height (Feet): 5 Height (Inches): 7.00 Weight (Pounds): 300 Precautions Precautions/Isolations: Fall Prevention Weight Bear Status Weight Bearing Restriction: Weight Bearing/Tolerated Location Restriction: R LE Referral Physician: Dr. Mei Referral Reason: Evaluation/Treatment Medical History Current History Pt post op day 1; R TKA. Per patient, she lives with her in a single story home. She was indep with all adls and iadls prior to surgery. She does not use any AD and still drives. 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 Pt reports having a lot of support if needed. Social History Home: Single Level Current Living Status: Spouse Steps Into Home: 3 ADL-Prior Level of Function SCALE: Activities may be completed with or without assistive devices. 6-Lreatnlrwo-yknwsei completes the activity by him/herself with no assistance from a helper. 5-Set-up or Clean-up Assistance-helper sets up or cleans up; patient completes activity. [place] assists only prior to or following the activity. 4-Supervision or Touching Assistance-helper provides verbal cues and/or touching/steadying and/or contact guard assistance as patient completes activity. Assistance may be provided throughout the activity or intermittently. 3-Partial/Moderate Assistance-helper does LESS THAN HALF the effort. [place] lifts, holds or supports trunk or limbs, but provides less than half the effort. 2-Substantial/Maximal Assistance-helper does MORE THAN HALF the effort. [place] lifts or holds trunk or limbs and provides more than half the effort. 6-[place]ycekicag-fyknwm does ALL the effort. Patient does none of the effort to complete the activity. Or, the assistance of 2 or more helpers is required for the patient to complete the activity. If activity was not attempted, code reason: 7-Patient Refused. 9-Not Applicable-not attempted and the patient did not perform the activity before the current illness, exacerbation or injury. 10-Not Attempted due to Environmental Limitations-(lack of equipment, weather restraints, etc.). 88-Not Attempted due to Medical Conditions or Safety Concerns. Self Care: Independent Functional Cognition: Independent DME/Equipment: Shower Built in shower seat. Drive Self: Yes OT Current Status Subjective Pt reports pain as 7/10. She verbalizes that pain meds were given previous night and declines wanting any more. Appearance Pt left supine in bed, CPM on RLE, all needs within reach. Mental Status/Objective Patient Orientation: Person, Place, Time, Situation Attachments: IV Current Glasses/Contacts: Yes Hearing Aids: No Dentures/Partials: No Hand Dominance: Right Upper Extremity ROM WNL Upper Extremity Strength not formally tested, appear WFL ADL-Treatment Eating (QC): 6 Oral Hygiene (QC): 4 Upper Body Dressing (QC): 5 (per clinical judgement) Lower Body Dressing (QC): 4 Toileting Hygiene (QC): 4 (per clinical judgement) Pt able to perform bed mobility and functional transfers with SBA and use of walker. No unsteadiness noted. She declined attempt to don/doff socks due to pain but reports that her spouse is available to assist if needed. Pt declines need to use toilet but verbalizes that she has been using toilet, performing mihaela care, and clothing management with SBA for safety only. RN in agreement. OT educated pt on care of incision during bathing. Pt asks appropriate questions and appears to have good understanding. Pt declines any further OT services at this time. Education OT Patient Education: Correct positioning, Energy conservation, Modified ADL techniques, Progress toward Goal/Update tx plan, Purpose of tx/functional activities, Reviewed precautions, Rehab process, Transfer techniques, Use of adapted equipment Teaching Recipient: Patient Teaching Methods: Discussion Response to Teaching: Verbalize Understanding OT [place] Ring Coverer Goals [place] Ring Coverer Goals 1=Demonstrate adherence to instructed precautions during ADL tasks. 2=Patient will verbalize/demonstrate understanding of assistive dev ices/modifications for ADL. 3=Patient will improve strength/tolerance for activity to enable patient to perform ADL's. OT Education/Plan Problem List/Assessment Assessment: No Skilled OT Needs ID'd Discharge Recommendations Plan/Recommendations: Discontinue OT Therapy Discharge Recommendati: Home & Family Treatment Plan/Plan of Care Treatment,Training & Education: Yes Patient would benefit from OT for education, treatment and training to promote independence in ADL's, mobility, safety and/or upper extremity function for ADL's. Plan of Care: ADL Retraining, Functional Mobility Treatment Duration: Jun 26, 2021 Frequency: 1 time per week Estimated Hrs Per Day: .25 hour per day Agreement: Yes Rehab Potential: Good Time/GCodes Start Time: 10:56 Stop Time: 11:08 Total Time Billed (hr/min): 12 Billed Treatment Time 1 visit, Flor De Dios OT Jun 26, 2021 12:03
--- NOTE | 2021-06-26 12:58 | Physical Therapy Daily Note ---
PT Daily Note-Current Subjective Patient lying supine in bed having just returned from the [place]. Reports pain in right knee is 8/10. Mental Status Patient Orientation: Person, Place, Time, Situation Attachments: Polar Pack, IV Transfers SCALE: Activities may be completed with or without assistive devices. 1-Zakakjlhtp-yfvgnno completes the activity by him/herself with no assistance from a helper. 5-Set-up or Clean-up Assistance-helper sets up or cleans up; patient completes activity. [place] assists only prior to or following the activity. 4-Supervision or Touching Assistance-helper provides verbal cues and/or touching/steadying and/or contact guard assistance as patient completes activity. Assistance may be provided throughout the activity or intermittently. 3-Partial/Moderate Assistance-helper does LESS THAN HALF the effort. [place] lifts, holds or supports trunk or limbs, but provides less than half the effort. 2-Substantial/Maximal Assistance-helper does MORE THAN HALF the effort. [place] lifts or holds trunk or limbs and provides more than half the effort. 1-Jslskntsk-vilnbc does ALL the effort. Patient does none of the effort to complete the activity. Or, the assistance of 2 or more helpers is required for the patient to complete the activity. If activity was not attempted, code reason: 7-Patient Refused. 9-Not Applicable-not attempted and the patient did not perform the activity before the current illness, exacerbation or injury. 10-Not Attempted due to Environmental Limitations-(lack of equipment, weather restraints, etc.). 88-Not Attempted due to Medical Conditions or Safety Concerns. Roll Left & Right (QC): 4 Sit to Lying (QC): 4 Lying to Sitting/Side of Bed(Q: 4 Sit to Stand (QC): 4 Chair/Phn-io-Xukzi Xfer(QC): 4 Toilet Transfer (QC): 4 Weight Bearing Right Lower Extremity: Right Weight Bearing/Tolerated Left Lower Extremity: Left Weight Bearing/Tolerated Gait Training Does the Patient Walk?: Yes Distance: 120 feet Walk 10 feet (QC): 5 Walk 50 ft with 2 Turns(QC): 5 Gait Persons Needed: 1 Gait Assistive Device: FWW Exercises Supine Ex: Ankle pumps, Quad Set, Glut sets Supine Reps: 20 Seated Therapy Exercises: Long arc quads, Hip flexion, Hamstring Curls, Hip abd/add Seated Reps: 20 Assessment Current Status: Fair Progress Patient tolerated treatment well. Demonstrates improved overall bed mobility and transfers with CGA/SBA. Patient ambulates 120 feet with FWW, with CGA and verbal cues for safety, progression, balance and conservation of energy. Patient performs LE therapeutic exercise as listed above. Patient returned to bed and placed in CPM at 0-80 degrees for 2 hours, with call light in hand, all needs met, nursing notified. PT [facility] Goals Senior Sales Representative Goals PT [facility] Goals Time Frame: Jul 16, 2021 Roll Left & Right (QC): 6 Sit to Lying (QC): 6 Lying-Sitting on Side/Bed(QC): 6 Sit to Stand (QC): 6 Chair/Djc-yy-Gkhxn Xfer(QC): 5 Toilet Transfer (QC): 5 Car Transfer (QC): 5 Does the Patient Walk: Yes Walk 10 feet (QC): 6 Walk 50ft with 2 Turns (QC): 6 Walk 150 ft (QC): 6 1 Step (curb) (QC): 5 4 Steps (QC): 5 PT Plan Treatment/Plan Treatment Plan: Continue Plan of Care Treatment Plan: Bed Mobility, Education, Functional Activity Lc, Functional Strength, Group Therapy, Gait, Safety, Therapeutic Exercise, Transfers Treatment Duration: Sep 03, 2021 Frequency: 11 times per week Estimated Hrs Per Day: .25 hour per day Patient and/or Family Agrees t: Yes Safety Risks/Education Patient Education: Gait Training Teaching Recipient: Patient Teaching Methods: Demonstration, Discussion Response to Teaching: Verbalize Understanding, Return Demonstration Time/GCodes Time In: 953 Time Out: 1017 Total Billed Treatment Time: 24 Total Billed Treatment Visit, Marielos, SHARON Stauffer PT Jun 26, 2021 12:57
[2021-06-26 15:23] VITALS: BP 137/61
--- NOTE | 2021-06-26 15:27 | Physical Therapy Progress Note ---
Therapy Progress Note PT attempted pm treatment. Patient asked "Why does my calf (right) hurt so bad?" Homans test was performed with increased posterior right calf pain upon DF, and severe pain upon gastrocnemius/soleus squeeze. Nurse notified, Physician contacted. Patient will be placed on hold until ultrasound can be performed to rule out DVT. Will check on patient in the am. SHARON REILLY PT Jun 26, 2021 15:27
--- NOTE | 2021-06-26 16:33 | Diagnostic Imaging Report ---
PROCEDURE: US right lower extremity venous. TECHNIQUE: Multiple real-time grayscale images were obtained over the right lower extremity in various projections. Additional spectral analysis and color Doppler duplex images were also obtained. INDICATION: One-day status post total knee replacement. Right leg pain and swelling There is normal augmentation, compression and color Doppler flow in the veins of the right leg with no thrombosis or other abnormality seen. IMPRESSION: No abnormality is seen. Dictated by: Dictated on workstation # [id number]
[2021-06-26 19:42] VITALS: BP 121/59
[2021-06-26 23:58] VITALS: BP 158/81
[2021-06-27] MEDS: NS IV 1000 ML 1,000 ML IV SCH (03:08)
[2021-06-27 04:05] VITALS: BP 153/85
--- NOTE | 2021-06-27 04:29 | DISCHARGE SUMMARY ---
DATE OF SERVICE: DIAGNOSES: 1. Right knee primary osteoarthritis. 2. Hypertension. 3. Hypercholesterolemia. PROCEDURE: Right total knee arthroplasty. SUMMARY: The patient is a 60-year-old female who underwent a right total knee arthroplasty on the day of admission. Postoperatively, she did well. She underwent an ultrasound, which was negative due to calf pain. Her wound was clean and dry. She had no calf tenderness. Negative Homans sign. She was tolerating diet well and tolerating pain with oral pain medication. CONDITION AT DISCHARGE: Good. DISCHARGE DIET: Regular. FOLLOWUP: Followup is in three weeks. ACTIVITIES: Weightbearing as tolerated with a walker. Home physical therapy has been arranged. DISCHARGE MEDICATIONS: Home medications, one aspirin per day for 30 days and Percocet as needed for pain. Job ID: [id number] DocumentID: [id number] Dictated Date: 06/26/2021 16:21:39 Carboy Filler Date: 06/27/2021 04:28:49 Dictated By: GERRY LAURENT MD
[2021-06-27] MEDS: ENOXAPARIN 30 MG/0.3 ML (LOVENOX) SYR SC SCH (05:43)
[2021-06-27] MEDS: MULTIVIT W/MINERALS TAB (THERAGRAN M) PO SCH (05:43)
--- NOTE | 2021-06-27 07:04 | Progress Note ---
Standard Progress Note Progress Notes/Assess & Plan Date Seen by a Provider: Jun 27, 2021 Time Seen by a Provider: 07:03 Progress/Assessment & Plan no complaints Vital Signs Date Time Temp Pulse Resp B/P (MAP) Pulse Ox O2 Delivery O2 Flow Rate FiO2 06/26/21 07:34 36.2 70 20 141/62 (88) 97 Room Air 06/26/21 03:50 36.0 66 18 123/71 (88) 98 Room Air 06/25/21 23:44 36.4 77 18 133/60 (84) 95 Room Air 06/25/21 20:25 Room Air 06/25/21 20:00 36.8 87 16 132/60 (84) 94 Room Air 06/25/21 15:33 36.5 78 14 138/64 (88) 93 Room Air 06/25/21 15:15 Room Air 06/25/21 14:58 36.2 14 06/25/21 12:00 36.2 84 14 137/63 (87) 98 Room Air 06/25/21 11:57 Room Air 06/25/21 11:50 36.1 14 132/72 (92) 100 Room Air 06/25/21 11:45 Room Air 06/25/21 11:40 14 129/71 (90) 100 Room Air 06/25/21 11:30 OxyMask 2 06/25/21 11:30 14 131/62 (85) 100 OxyMask 2 06/25/21 11:20 16 130/68 (88) 100 OxyMask 4 06/25/21 11:15 OxyMask 6 06/25/21 11:10 18 132/58 (82) 100 OxyMask 6 06/25/21 11:00 OxyMask 6 06/25/21 11:00 20 135/76 (95) 100 OxyMask 6 06/25/21 10:50 20 106/87 (93) 100 OxyMask 8 06/25/21 10:45 OxyMask 10 06/25/21 10:45 36.2 20 150/78 (102) 100 OxyMask 10 I & O 06/26/21 07:00 Intake Total 2755 ml Balance 2755 ml RLE--dressing intact NVI distally no calf tenderness. neg Janel's s/p RTKA PT/OT Final Diagnosis no complaints Vital Signs Date Time Temp Pulse Resp B/P (MAP) Pulse Ox O2 Delivery O2 Flow Rate FiO2 06/27/21 04:05 36.3 79 17 153/85 (107) 98 Room Air 06/26/21 23:58 36.5 85 17 158/81 (106) 96 Room Air 06/26/21 20:00 Room Air 06/26/21 19:42 36.8 84 18 121/59 (79) 99 Room Air 06/26/21 15:23 37.0 81 18 137/61 (86) 98 Room Air 06/26/21 11:40 37.3 81 20 137/62 (87) 97 Room Air 06/26/21 08:00 Room Air 06/26/21 07:34 36.2 70 20 141/62 (88) 97 Room Air I & O 06/27/21 07:00 Intake Total 1560 ml Balance 1560 ml RLE--incision clean and dry. calf tenderness, but Neg Janel's U/S neg for DVT s/p RTKA doing well DC home after PT today GERRY LAURENT MD Jun 27, 2021 07:04
[2021-06-27] MEDS ORDERED: morphine INJ 4 MG/ML 1 ML (VIAL/SYRINGE) IVP PRN (07:15)
[2021-06-27 07:21] VITALS: BP 166/75
[2021-06-27] MEDS: SENNA W/DOCUSATE (SENOKOT S) TABLET PO SCH (07:57)
[2021-06-27] MEDS: oxyCODONE/APAP 5/325MG (PERCOCET 5) TABLET PO PRN ×4 (07:57→15:53)
[2021-06-27] MEDS: ASPIRIN E.C. 81 MG (ECOTRIN) TAB PO SCH (07:58)
[2021-06-27 11:49] VITALS: BP 138/63
--- NOTE | 2021-06-27 13:27 | Physical Therapy Daily Note ---
PT Daily Note-Current Subjective Patient sitting in chair upon PT arrival, agreeable to treatment. Patient rates pain at 8/10 currently. Mental Status Patient Orientation: Person, Place, Time, Situation Transfers SCALE: Activities may be completed with or without assistive devices. 9-Mbnctfnhvd-cwpqazy completes the activity by him/herself with no assistance from a helper. 5-Set-up or Clean-up Assistance-helper sets up or cleans up; patient completes activity. [place] assists only prior to or following the activity. 4-Supervision or Touching Assistance-helper provides verbal cues and/or touching/steadying and/or contact guard assistance as patient completes activity. Assistance may be provided throughout the activity or intermittently. 3-Partial/Moderate Assistance-helper does LESS THAN HALF the effort. [place] lifts, holds or supports trunk or limbs, but provides less than half the effort. 2-Substantial/Maximal Assistance-helper does MORE THAN HALF the effort. [place] lifts or holds trunk or limbs and provides more than half the effort. 2-Bsqrhmgku-hkdbxk does ALL the effort. Patient does none of the effort to complete the activity. Or, the assistance of 2 or more helpers is required for the patient to complete the activity. If activity was not attempted, code reason: 7-Patient Refused. 9-Not Applicable-not attempted and the patient did not perform the activity before the current illness, exacerbation or injury. 10-Not Attempted due to Environmental Limitations-(lack of equipment, weather restraints, etc.). 88-Not Attempted due to Medical Conditions or Safety Concerns. Sit to Stand (QC): 4 Chair/Gib-uv-Zilzj Xfer(QC): 4 Toilet Transfer (QC): 4 Weight Bearing Right Lower Extremity: Right Weight Bearing/Tolerated Left Lower Extremity: Left Weight Bearing/Tolerated Gait Training Does the Patient Walk?: Yes Distance: 110 feet Walk 10 feet (QC): 4 Walk 50 ft with 2 Turns(QC): 4 Gait Assistive Device: FWW Exercises Seated Therapy Exercises: Ankle pumps, Long arc quads, Hip flexion, Hamstring Curls, Hip abd/add, Glut set Seated Reps: 20 Assessment Current Status: Fair Progress Patient tolerated treatment well. Performs LE therapeutic exercise as listed while sitting in the chair. Patient performs all observed transfers with CGA. Patient ambulates 110 feet with FWW with CGA and verbal cues for safety, progression, balance, posture. Patient ambulates with antalgic gait pattern on the right LE, with reports of increased right calf pain. US was negative for DVT on 06-26-21. Patient in chair post treatment with all needs met, nursing notified. PT Barrel Raiser Goals Shelter Goals PT Barrel Raiser Goals Time Frame: Jul 16, 2021 Roll Left & Right (QC): 6 Sit to Lying (QC): 6 Lying-Sitting on Side/Bed(QC): 6 Sit to Stand (QC): 6 Chair/Rul-bu-Fqhpj Xfer(QC): 5 Toilet Transfer (QC): 5 Car Transfer (QC): 5 Does the Patient Walk: Yes Walk 10 feet (QC): 6 Walk 50ft with 2 Turns (QC): 6 Walk 150 ft (QC): 6 1 Step (curb) (QC): 5 4 Steps (QC): 5 PT Plan Treatment/Plan Treatment Plan: Continue Plan of Care Treatment Plan: Bed Mobility, Education, Functional Activity Lc, Functional Strength, Group Therapy, Gait, Safety, Therapeutic Exercise, Transfers Treatment Duration: Sep 03, 2021 Frequency: 11 times per week Estimated Hrs Per Day: .25 hour per day Patient and/or Family Agrees t: Yes Safety Risks/Education Patient Education: Gait Training, Transfer Techniques Teaching Recipient: Patient Teaching Methods: Demonstration, Discussion Response to Teaching: Verbalize Understanding, Return Demonstration Time/GCodes Time In: 900 Time Out: 926 Total Billed Treatment Time: 26 Total Billed Treatment Visit, ryan Arceo JOHN A PT Jun 27, 2021 13:27
--- NOTE | 2021-06-27 15:15 | Physical Therapy Daily Note ---
PT Daily Note-Current Subjective Patient sitting up in chair upon PT arrival, agreeable to treatment. Reports pain at 6/10 currently. Mental Status Patient Orientation: Person, Place, Time, Situation Transfers SCALE: Activities may be completed with or without assistive devices. 6-Cozkvomxyp-rukwzuw completes the activity by him/herself with no assistance from a helper. 5-Set-up or Clean-up Assistance-helper sets up or cleans up; patient completes activity. [place] assists only prior to or following the activity. 4-Supervision or Touching Assistance-helper provides verbal cues and/or touching/steadying and/or contact guard assistance as patient completes activity. Assistance may be provided throughout the activity or intermittently. 3-Partial/Moderate Assistance-helper does LESS THAN HALF the effort. [place] lifts, holds or supports trunk or limbs, but provides less than half the effort. 2-Substantial/Maximal Assistance-helper does MORE THAN HALF the effort. [place] lifts or holds trunk or limbs and provides more than half the effort. 2-Ljeualolz-xriefe does ALL the effort. Patient does none of the effort to complete the activity. Or, the assistance of 2 or more helpers is required for the patient to complete the activity. If activity was not attempted, code reason: 7-Patient Refused. 9-Not Applicable-not attempted and the patient did not perform the activity before the current illness, exacerbation or injury. 10-Not Attempted due to Environmental Limitations-(lack of equipment, weather restraints, etc.). 88-Not Attempted due to Medical Conditions or Safety Concerns. Sit to Stand (QC): 4 Chair/Ume-hw-Hsrnb Xfer(QC): 4 Toilet Transfer (QC): 4 Weight Bearing Right Lower Extremity: Right Weight Bearing/Tolerated Left Lower Extremity: Left Weight Bearing/Tolerated Gait Training Does the Patient Walk?: Yes Distance: 50 Walk 10 feet (QC): 4 Walk 50 ft with 2 Turns(QC): 4 Gait Assistive Device: FWW Stair Training Stair Training: Handrails/: No handrail, uses walker #of Steps: 3 1 Step (curb) (QC): 3 Stairs: Pattern: Step to Exercises Seated Therapy Exercises: Ankle pumps, Long arc quads, Shoulder Abd, Hamstring Curls, Hip abd/add, Glut set Seated Reps: 20 Assessment Current Status: Fair Progress Patient tolerated treatment fair. Patient performs LE therapeutic exercise as listed above. Patient educated on and performed ascending and descending 1 step x 3 with FWW, with min A. Patient ambulates 50 feet with FWW, with CGA and verbal cues for safety, posture and performance. Patient in chair post treatment with all needs met, nursing notified, call light in hand. PT Life Care Planner Goals Group Home Goals PT Group Home Goals Time Frame: Jul 16, 2021 Roll Left & Right (QC): 6 Sit to Lying (QC): 6 Lying-Sitting on Side/Bed(QC): 6 Sit to Stand (QC): 6 Chair/Euv-gk-Httzh Xfer(QC): 5 Toilet Transfer (QC): 5 Car Transfer (QC): 5 Does the Patient Walk: Yes Walk 10 feet (QC): 6 Walk 50ft with 2 Turns (QC): 6 Walk 150 ft (QC): 6 1 Step (curb) (QC): 5 4 Steps (QC): 5 PT Plan Treatment/Plan Treatment Plan: Continue Plan of Care Treatment Plan: Bed Mobility, Education, Functional Activity Lc, Functional Strength, Group Therapy, Gait, Safety, Therapeutic Exercise, Transfers Treatment Duration: Sep 03, 2021 Frequency: 11 times per week Estimated Hrs Per Day: .25 hour per day Patient and/or Family Agrees t: Yes Safety Risks/Education Patient Education: Gait Training, Steps Teaching Recipient: Patient Teaching Methods: Demonstration, Discussion Response to Teaching: Verbalize Understanding, Return Demonstration Time/GCodes Time In: 1400 Time Out: 1427 Total Billed Treatment Time: 27 Total Billed Treatment Visit, Gait, Ex SHARON REILLY PT Jun 27, 2021 15:15
== END 2021-06-27 16:33 | disposition home health service (06) | DRG 470 ==
LOC: 4TH 07:26 → SURG 07:27 → 4TH 11:40
PROVIDERS: ADMIT Orthopaedic Surgery; ATTEND Orthopaedic Surgery
PROC: 0SRC0J9 Replacement of Right Knee Joint with Synthetic Substitute, Cemented, Open Approach (ICD-10-PCS; principal; 2021-06-25 09:10)
DX: M17.11 Unilateral primary osteoarthritis, right knee (principal); I10 Essential (primary) hypertension; E78.00 Pure hypercholesterolemia, unspecified; Z88.2 Allergy status to sulfonamides; Z88.0 Allergy status to penicillin; E78.5 Hyperlipidemia, unspecified; Z20.822 Contact with and (suspected) exposure to COVID-19
CPT/HCPCS: 86850; 86900; 86901; 93005; 94664